=== PATIENT | female | born 1950 | race Caucasian/White ===

== ENCOUNTER 2018-08-18 09:12 | Emergency (ER) | payer MEDICARE, BC ==
[2018-08-18 09:25] VITALS: BP 152/93
--- NOTE | 2018-08-18 09:48 | EDM.PDOC ---
ED HPI GENERAL MEDICAL PROBLEM - General Chief Complaint: Upper Extremity Injury/Pain Stated Complaint: FELL Time Seen by Provider: 08/18/18 09:44 - History of Present Illness INITIAL COMMENTS - FREE TEXT/NARRATIVE: HISTORY AND PHYSICAL: History of present illness: Patient is a 68-year-old female presents 1 week status post left hand injury with pain to her first digit she denies other trauma or concern. Review of systems: As per history of present illness and below otherwise all systems reviewed and negative. Past medical history: As per history of present illness and as reviewed below otherwise noncontributory. Surgical history: As per history of present illness and as reviewed below otherwise noncontributory. Social history: No reported history of drug or alcohol abuse. Family history: As per history of present illness and as reviewed below otherwise noncontributory. Physical exam: HEENT: Atraumatic, normocephalic, pupils reactive, negative for conjunctival pallor or scleral icterus, mucous membranes moist, throat clear, neck supple, nontender, trachea midline. Lungs: Clear to auscultation, breath sounds equal bilaterally, chest nontender. Heart: S1S2, regular, negative for clicks, rubs, or JVD. Abdomen: Soft, nondistended, nontender. Negative for masses or hepatosplenomegaly. Negative for costovertebral tenderness. Pelvis: Stable nontender. Genitourinary: Deferred. Rectal: Deferred. Extremities: Patient is a small ecchymosis and tenderness to palpation at the base of the first digit of her left hand is no gross deformity no vascular exam CMS unremarkable there's no tendon injury. Neuro: Awake, alert, oriented. Cranial nerves II through XII unremarkable. Cerebellum unremarkable. Motor and sensory unremarkable throughout. Exam nonfocal. Diagnostics: X-ray left hand Therapeutics: To be determined Impression: #1 observation 1 week status post left hand injury Definitive disposition and diagnosis as appropriate pending reevaluation and review of above. left wrist Pain Score (Numeric/FACES): 2 - Related Data Allergies Allergy/AdvReac Type Severity Reaction Status Date / Time No Known Allergies Allergy Verified 08/18/18 09:20 Home Meds: Home Meds Glimepiride 1 tab PO BID 12/19/15 [History] Insulin Detemir [Levemir] 20 units SQ BEDTIME 12/19/15 [History] Lisinopril 1 tab PO DAILY 12/19/15 [History] Simvastatin 20 mg PO DAILY 12/19/15 [History] amLODIPine [Norvasc] 5 mg PO DAILY 12/19/15 [History] metFORMIN HCl [Metformin HCl] 1 tab PO BID 08/18/18 [History] Past Medical History Cardiovascular History: Reports: High Cholesterol, Hypertension Other Cardiovascular History: CEA Respiratory History: Reports: None Gastrointestinal History: Reports: None Genitourinary History: Reports: None 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 Social & Family History - Family History Family Medical History: Noncontributory - Tobacco Use Smoking Status *Q: Never Smoker - Caffeine Use Caffeine Use: Reports: Coffee - Recreational Drug Use Recreational Drug Use: No Review of Systems - Review of Systems Review Of Systems: ROS reveals no pertinent complaints other than HPI. ED EXAM, GENERAL - Physical Exam Exam: See Below (dictation) Course - Vital Signs Last Recorded V/S: Last Vital Signs Temp 36.5 C 08/18/18 09:23 Pulse 92 08/18/18 09:23 Resp 18 08/18/18 09:23 BP 152/93 H 08/18/18 09:23 Pulse Ox 98 08/18/18 09:23 Departure - Departure Time of Disposition: 09:48 Disposition: Home, Self-Care 01 Condition: Good Clinical Impression: Hand injury - Discharge Information Referrals: Anthony Cannon MD [Primary Care Provider] - Forms: ED Department Discharge Additional Instructions: The following information is given to patients seen in the emergency department who are being discharged to home. This information is to outline your options for follow-up care. We provide all patients seen in our emergency department with a follow-up referral. The need for follow-up, as well as the timing and circumstances, are variable depending upon the specifics of your emergency department visit. If you don't have a primary care physician on staff, we will provide you with a referral. We always advise you to contact your personal physician following an emergency department visit to inform them of the circumstance of the visit and for follow-up with them and/or the need for any referrals to a consulting specialist. The emergency department will also refer you to a specialist when appropriate. This referral assures that you have the opportunity for followup care with a specialist. All of these measure are taken in an effort to provide you with optimal care, which includes your followup. Under all circumstances we always encourage you to contact your private physician who remains a resource for coordinating your care. When calling for followup care, please make the office aware that this follow-up is from your recent emergency room visit. If for any reason you are refused follow-up, please contact the [facility] emergency department at and asked to speak to the emergency department charge nurse. Follow-up primary medical doctor as needed as discussed Tylenol as directed splint as directed return as needed as discussed
--- NOTE | 2018-08-18 10:00 | CR ---
INDICATION: Fall. Pain and swelling base of thumb. FINDINGS: Three views of the left hand were obtained. There is no acute fracture seen or dislocation. There mild degenerative changes in the interphalangeal joints. IMPRESSION: No acute bone abnormality. Dictated by Robin Stewart MD @ 08/18/2018 9:59:23 AM Dictated by: Robin Stewart MD @ 08/18/2018 09:59:27 (Electronically Signed)
== END 2018-08-18 10:27 | disposition home or self-care (01) ==
LOC: MW.ED 09:12
DX: S69.92XA Unspecified injury of left wrist, hand and finger(s), initial encounter (principal); E11.9 Type 2 diabetes mellitus without complications; Z79.4 Long term (current) use of insulin; Z79.899 Other long term (current) drug therapy; X58.XXXA Exposure to other specified factors, initial encounter
CPT/HCPCS: 73130-26-LT; 73130-LT; 99282; 99283-25

== ENCOUNTER 2019-11-26 20:04 | Emergency (ER) | payer MEDICARE, BC ==
[2019-11-26] MEDS ORDERED: Morphine 15 MG Tab PO ONE (20:48)
[2019-11-26] MEDS ORDERED: Acetaminophen 325 MG Tab PO ONE (20:48)
--- NOTE | 2019-11-26 21:10 | EDM.PDOC ---
ED HPI GENERAL MEDICAL PROBLEM - General Chief Complaint: Lower Extremity Injury/Pain Stated Complaint: FALL, LEFT KNEWW PAIN Time Seen by Provider: 11/26/19 20:20 - History of Present Illness INITIAL COMMENTS - FREE TEXT/NARRATIVE: HISTORY AND PHYSICAL: History of present illness: This 69-year-old female was ambulating in her garage carrying a planter box when she tripped and fell landing on her left knee. She has a past medical history of diabetes, hypertension and hyperlipidemia. She rates her left knee pain is severe. It is swollen. She has iced it. It is worse with walking. Better with rest and elevation. No other associated signs or symptoms. No other modifying, aggravating or alleviating factors. Review of systems: A 10-point review of systems, other than pertinent positives and negatives as stated per HPI, is otherwise negative. Past medical history: As per history of present illness and as reviewed below otherwise noncontributory. Surgical history: As per history of present illness and as reviewed below otherwise noncontributory. Social history: No reported history of drug or alcohol abuse. Family history: As per history of present illness and as reviewed below otherwise noncontribut ory. Physical exam: VITAL SIGNS: Reviewed. GENERAL: In no apparent distress. HEAD: No signs of head trauma. EYES: Pupils are equal. Extraocular motions intact. EARS: Hearing grossly intact. MOUTH: Oropharynx is normal. NECK: No adenopathy, no JVD. CHEST: Chest with clear breath sounds bilaterally. No wheezes, rales, or rhonchi. CARDIAC: Regular rate and rhythm. Normal S1 and S2, without murmurs, gallops, or rubs. VASCULAR: Peripheral pulses normal and equal in all extremities. ABDOMEN: Soft, without detectable tenderness. No sign of distention. No rebound or guarding, and no masses palpated. MUSCULOSKELETAL: Good range of motion all major joints, distal neurovascular function is intact in the left knee. Ligamentous exam appears normal with no laxity noted however there is significant swelling and this may limit the exam. There is a joint effusion. No crepitus or instability. Some point tenderness on the proximal tibial area concerning for tibial plateau injury. NEUROLOGIC EXAM: Alert and oriented x 3. No focal sensory or motor deficits. Speech normal. Follows commands. PSYCHIATRIC: Mood normal. SKIN: No rash or lesions. Initial Differential Diagnosis & Plan: Extremity trauma: Differential diagnosis includes fracture, dislocation, strain, contusion, tendon or ligamentous injury, compartment syndrome, neurovascular injury, muscle rupture. We will obtain x-rays. If x-rays are negative and the patient still having difficulty walking I may opt for a CT scan to rule out tibial plateau injury. Definitive disposition and diagnosis as appropriate pending reevaluation and review of above. L knee pain Pain Score (Numeric/FACES): 6 - Related Data Allergies Allergy/AdvReac Type Severity Reaction Status Date / Time No Known Allergies Allergy Verified 11/26/19 20:17 Home Meds: Home Meds Glimepiride 1 tab PO BID 12/19/15 [History] Insulin Detemir [Levemir] 20 units SQ BEDTIME 12/19/15 [History] Lisinopril 1 tab PO DAILY 12/19/15 [History] Simvastatin 20 mg PO DAILY 12/19/15 [History] amLODIPine [Norvasc] 5 mg PO DAILY 12/19/15 [History] metFORMIN HCl [Metformin HCl] 1 tab PO BID 08/18/18 [History] Aspirin 325 mg PO DAILY 11/26/19 [History] Levothyroxine [Synthroid] 88 mcg PO DAILY 11/26/19 [History] Liraglutide [Victoza] 1 injection SQ DAILY 11/26/19 [History] Past Medical History HEENT History: Reports: Impaired Vision Cardiovascular History: Reports: High Cholesterol, Hypertension Other Cardiovascular History: CEA Respiratory History: Reports: None Gastrointestinal History: Reports: None Genitourinary History: Reports: None 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: Musculoskeletal History: Reports: None Other Musculoskeletal History: fx R wrist Neurological History: Reports: None Psychiatric History: Reports: Anxiety Endocrine/Metabolic History: Reports: Diabetes, Type II Hematologic History: Reports: None Immunologic History: Reports: None Oncologic (Cancer) History: Reports: None Dermatologic History: Reports: None - Infectious Disease History Infectious Disease History: Reports: Chicken Pox, Measles - Past Surgical History Other Cardiovascular Surgeries/Procedures: R carotid surgery unknown name of surgery but had plaque buildup and cleaned it out, echo in august- slight narrowing of valve Social & Family History - Family History Family Medical History: Noncontributory - Caffeine Use Caffeine Use: Reports: None - Recreational Drug Use Recreational Drug Use: No Review of Systems - Review of Systems Review Of Systems: See Below (noted) ED EXAM, GENERAL - Physical Exam Exam: See Below (noted) Course - Vital Signs Text/Narrative:: PROCEDURE: Fracture Care LOCATION AND FRACTURE TYPE: Left patella fracture INDICATION: Fracture SPLINTING PROCEDURE NOTE: Knee immobilizer left knee COMPLICATIONS: None NEUROVASCULAR EXAM: intact both before and after procedure. Crutches and left knee immobilizer for left patella fracture to allow for ambulation and follow-up to orthopedics Last Recorded V/S: Last Vital Signs Temp 97.2 F 11/26/19 20:21 Pulse 108 H 11/26/19 20:21 Resp 18 11/26/19 20:21 BP 192/103 H 11/26/19 20:21 Pulse Ox 97 11/26/19 20:21 - Orders/Labs/Meds Orders: Active Orders 24 hr Category Date Time Status Knee 3V Lt [CR] Stat Exams 11/26/19 20:48 Taken DME for Discharge [COMM] Stat Oth 11/26/19 21:42 Ordered DME for Discharge [COMM] Stat Oth 11/26/19 21:43 Ordered Meds: Medications Discontinued Medications Generic Name Dose Route Start Last Admin Trade Name Oh PRN Reason Stop Dose Admin Acetaminophen 975 mg 11/26/19 20:48 11/26/19 21:02 Tylenol PO 11/26/19 20:49 975 mg NOW ONE Administration Morphine Sulfate 15 mg 11/26/19 20:48 Morphine PO 11/26/19 20:49 ONETIME ONE Departure - Departure Time of Disposition: 21:47 Disposition: Home, Self-Care 01 Clinical Impression: Left patella fracture - Discharge Information *PRESCRIPTION DRUG MONITORING PROGRAM REVIEWED*: Not Applicable *COPY OF PRESCRIPTION DRUG MONITORING REPORT IN PATIENT MURIEL: Not Applicable Instructions: Patellar Fracture Rehab-SportsMed, How to Use a Knee Immobilizer, [id number] Referrals: Anthony Cannon MD [Primary Care Provider] - Forms: ED Department Discharge Additional Instructions: The following information is given to patients seen in the emergency department who are being discharged to home. This information is to outline your options for follow-up care. We provide all patients seen in our emergency department with a follow-up referral. The need for follow-up, as well as the timing and circumstances, are variable depending upon the specifics of your emergency department visit. If you don't have a primary care physician on staff, we will provide you with a referral. We always advise you to contact your personal physician following an emergency department visit to inform them of the circumstance of the visit and for follow-up with them and/or the need for any referrals to a consulting specialist. The emergency department will also refer you to a specialist when appropriate. This referral assures that you have the opportunity for follow-up care with a specialist. All of these measure are taken in an effort to provide you with optimal care, which includes your follow-up. Thank you for coming to the [facility] urgency department for your care today. It was Dr. Canales's pleasure to take care of you. [facility] Professional Building [address] [place] [address], [address] [place] [address] You have fractured your kneecap (patella) please use the knee immobilizer for support and help. Follow-up with orthopedics. Normally this heals on its own with some immobilization. Please return emergency department for worsening or any other concerns. Under all circumstances we always encourage you to contact your private physician who remains a resource for coordinating your care. When calling for follow-up care, please make the office aware that this follow-up is from your recent emergency room visit. If for any reason you are refused follow-up, please contact the [facility] Emergency Department at and asked to speak to the emergency department charge nurse. Sepsis Event Note (ED) - Evaluation Sepsis Screening Result: No Definite Risk - Focused Exam Vital Signs: Vital Signs Temp Pulse Resp BP Pulse Ox 11/26/19 20:21 97.2 F 108 H 18 192/103 H 97 - My Orders Last 24 Hours: My Active Orders 11/26/19 20:48 Knee 3V Lt [CR] Stat 11/26/19 21:42 DME for Discharge [COMM] Stat 11/26/19 21:43 DME for Discharge [COMM] Stat - Assessment/Plan Last 24 Hours: My Active Orders 11/26/19 20:48 Knee 3V Lt [CR] Stat 11/26/19 21:42 DME for Discharge [COMM] Stat 11/26/19 21:43 DME for Discharge [COMM] Stat
[2019-11-26 22:16] VITALS: BP 160/90; PULSE 107
--- NOTE | 2019-11-26 22:16 | CR ---
Indication: Pain after fall on knee Technique: Three views Comparison: None Findings: Bones: There is a complex patellar fracture with both longitudinal and transverse components without significant displacement on these views. Joint spaces: Large knee effusion with lipohemarthrosis. No dislocation. Small patellofemoral and lateral compartment osteophytes. Soft tissues: Atherosclerosis. Mild anterior soft tissue swelling. Dictated by Francisco Lugo MD @ Nov 26 2019 10:13PM Signed by Dr. Francisco Lugo @ Nov 26 2019 10:15PM
== END 2019-11-26 22:07 | disposition home or self-care (01) ==
LOC: MW.ED 20:04
DX: S82.002A Unspecified fracture of left patella, initial encounter for closed fracture (principal); E11.9 Type 2 diabetes mellitus without complications; I10 Essential (primary) hypertension; E78.5 Hyperlipidemia, unspecified; Z79.82 Long term (current) use of aspirin; Z79.4 Long term (current) use of insulin; Z79.899 Other long term (current) drug therapy; W01.0XXA Fall on same level from slipping, tripping and stumbling without subsequent striking against object, initial encounter
CPT/HCPCS: 73562; 99283; A9270